=== PATIENT | male | born 1990 | race Caucasian/White ===

== ENCOUNTER 2017-12-28 22:09 | Emergency (ER) | END 2017-12-29 00:48 | disposition home or self-care (01) ==

== ENCOUNTER 2018-06-18 12:04 | Emergency (ER) | payer MEDICAID ==
[~2018-06-18] VITALS: Wt 70.6 kg
[~2018-06-18 12:04] MED LIST: DENIES MEDS; DICY10CA40 PO; DOCU-144 PO
[2018-06-18 12:53] VITALS: BP 125/66; PULSE 68; RESP 19
[2018-06-18] MEDS ORDERED: IBUPROFEN 600 MG TAB PO ONE (14:00)
[2018-06-18] MEDS ORDERED: IBUP-1542 PO (15:02)
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
== END 2018-06-18 15:13 | disposition home or self-care (01) ==
LOC: FTE 12:04
DX: M25.511 Pain in right shoulder (principal)
CPT/HCPCS: 73030; Z7502; Z7610